=== PATIENT | male | born 1990 | race Caucasian/White ===

== ENCOUNTER 2017-03-31 01:11 | Emergency (ER) | payer MEDICAID, OTHER ==
[~2017-03-31] VITALS: Ht 172.7 cm; Wt 107.5 kg
[~2017-03-31 01:11] MED LIST: BACTDS PO; DIPH25CA6 PO; PRED20TA PO
[2017-03-31 01:15] VITALS: Ht 172.7 cm; Wt 107.5 kg
[2017-03-31] MEDS ORDERED: KETOROLAC 60 MG INJ IM STA (01:37)
[2017-03-31] MEDS ORDERED: IBUP-1542 PO (01:41)
[2017-03-31] MEDS ORDERED: CYCL-319 PO (01:41)
[2017-03-31] MEDS ORDERED: HYDR-906 PO (01:41)
--- NOTE | 2017-03-31 01:48 | ERD ---
ER Documentation Chief Complaint Date/Time DATE: 03/31/17 TIME: 01:46 Chief Complaint lower back pain x 4 days worst today denies trauma HPI 26-year-old male presents in emergency department for complaint of lower back pain for 4 days, patient slept in the 1 position, lifted weights afterwards, after lifting weights, started to have the pain in the back. Patient discussed pain as throbbing pain, succession scale, is worse upon movement accompanied with muscle spasms. Patient took some Tylenol for pain with only mild relief. Patient denies any numbness or tingling. Patient denies any incontinence. Patient denies any trauma on affected area. Patient denies any numbness or tingling. Patient denies any blood in his or black stool. Patient denies any fever or chills. ROS All systems reviewed and are negative except as per history of present illness. Medications Home Meds Active Scripts Hydrocodone/Acetaminophen ([place] 5-325 Tablet) 1 Each Tablet, 1 TAB PO Q6H Y for SEVERE PAIN LEVEL 7-10, #7 TAB Prov:EDGAR PATEL NP 03/31/17 Ibuprofen* (Motrin*) 600 Mg Tab, 600 MG PO Q6H Y for PAIN AND OR ELEVATED TEMP, #30 TAB Prov:EDGAR PATEL NP 03/31/17 Cyclobenzaprine Hcl* (Cyclobenzaprine Hcl*) 10 Mg Tablet, 10 MG PO TID, #20 TAB Prov:EDGAR PATEL NP 03/31/17 Diphenhydramine Hcl (Benadryl) 25 Mg Cap, 25 MG PO QID for rash, #14 CAP Prov:THOMAS CARVER MD 04/14/15 Prednisone* (Prednisone*) 20 Mg Tab, 40 MG PO DAILY for 3 Days, TAB start 04/15 Prov:THOMAS CARVER MD 04/14/15 Sulfamethoxazole-Trimethoprim* (Bactrim* DS) 800-160 Mg Tab, 1 TAB PO BID for 10 Days, TAB Prov:THOMAS CARVER MD 03/31/15 Allergies Allergies: Coded Allergies: Penicillins (Verified Allergy, Unknown, 04/14/15) PMhx/Soc Medical and Surgical Hx: pt denies Medical Hx, pt denies Surgical Hx History of Surgery: No (DENIES MEDICAL AND SURGICAL HX.) Hx Alcohol Use: No Hx Substance Use: Yes (Mary) Hx Tobacco Use: No Smoking Status: Never smoker FmHx Family History: No coronary disease, No diabetes, No other Physical Exam Vitals Vital Signs Date Time Temp Pulse Resp B/P Pulse Ox O2 Delivery O2 Flow Rate FiO2 03/31/17 01:15 99.1 97 20 133/68 98 Physical Exam GENERAL: The patient is well developed and appropriate for usual state of health, in no apparent distress. CHEST: Clear to auscultation bilaterally. There are no rales, wheezes or rhonchi. HEART: Regular rate and rhythm. No murmurs, clicks, rubs or gallops. No S3 or S4. ABDOMEN: Soft, nontender and nondistended. Good bowel sounds. No rebound or guarding. No gross peritonitis. No gross organomegaly or masses. No Robles sign or McBurney point tenderness. BACK: No midline or flank tenderness. muscle spasms noted in the paraspinal aspect of the lumbar spine, able to do full range of motion without any restriction. EXTREMITIES: Equal pulses bilaterally. There is no peripheral clubbing, cyanosis or edema. No focal swelling or erythema. Full range of motion. Grossly neurovascularly intact. NEURO: Alert and oriented. Cranial nerves 2-12 intact. Motor strength in all 4 extremities with 5/5 strength. Sensation grossly intact. Normal speech and gait. SKIN: There is no apparent rash or petechia. The skin is warm and dry. HEMATOLOGIC AND LYMPHATIC: There is no evidence of excessive bruising or lymphedema. No gross cervical, axillary, or inguinal lymphadenopathy. Results 24 hrs Current Medications Medications (Trade) Dose Ordered Sig/Rubén Route PRN Reason Start Time Stop Time Status Last Admin Dose Admin Ketorolac Tromethamine (Toradol) 60 mg ONCE STAT IM 03/31/17 01:37 03/31/17 01:38 DC Patient was given medication for pain here in emergency department, after treatment, patient verbalized feeling much better. Patient's pain is improved. Procedures/MDM Medical Decision Making: Patient's pain is most likely consistent with a back strain. There is no suspicion for neurovascular compromise. Patient has intact sensation and circulation of the affected extremity and distal extremities. No incontinence, no suspicion for cauda equina syndrome, no saddle anesthesia, no symptoms of any acute bacterial infection, no symptoms of any perirectal abscesses, pilonidal cyst.There is low suspicion for septic arthritis. Patient does not have any fever. No symptoms of any aortic dissection or aortic aneurysm. Radiology exam not indicated at this time. Disposition: Home. Patient is given prescription for ibuprofen for mild to moderate pain, [place] for severe pain, Flexeril for muscle spasm. Patient was advised to avoid heavy lifting , apply warm compresses on affected area. Patient was advised that if symptoms are worse, numbness, tingling, high fever, unable to move joint, worsening symptoms, to return to emergency department immediately. Otherwise, patient is advised to follow up with the primary care doctor in 5-7 days for reevaluation of symptoms. Departure Diagnosis: Primary Impression: Back pain Back pain location: low back pain Chronicity: acute Back pain laterality: bilateral Sciatica presence: without sciatica Qualified Code: M54.5 - Acute bilateral low back pain without sciatica Condition: Stable Patient Instructions: Back Pain (Acute Or Chronic) EDGAR PATEL NP Mar 31, 2017 01:48
== END 2017-03-31 02:00 | disposition home or self-care (01) ==
LOC: FTE 01:11
DX: M54.5 Low back pain (principal)
CPT/HCPCS: 96372; J1885